=== PATIENT | male | born 1985 | race Caucasian/White ===

== ENCOUNTER 2022-08-06 07:50 | Emergency (ER) | payer MEDICAID ==
[~2022-08-06] VITALS: Ht 170.2 cm; Wt 95.0 kg
[2022-08-06 08:01] VITALS: BP 171/113
== END 2022-08-06 09:54 | disposition left against medical advice (07) ==
LOC: ER 07:50
DX: M79.673 Pain in unspecified foot (principal); Z53.21 Procedure and treatment not carried out due to patient leaving prior to being seen by health care provider

== ENCOUNTER 2022-08-08 18:10 | Emergency (ER) | payer MEDICAID ==
[~2022-08-08] VITALS: Ht 170.2 cm; Wt 97.0 kg
[2022-08-08] MEDS ORDERED: PRED20TA PO (20:29)
[2022-08-08] MEDS ORDERED: predniSONE 20 mg tablet PO ONE (20:30)
[2022-08-08 21:31] VITALS: BP 129/84
== END 2022-08-08 21:33 | disposition home or self-care (01) ==
LOC: ER 18:11
DX: M10.9 Gout, unspecified (principal); Z88.1 Allergy status to other antibiotic agents; Z79.899 Other long term (current) drug therapy
CPT/HCPCS: 99283; J7512